=== PATIENT | male | born 1975 | race Caucasian/White ===

== ENCOUNTER 2022-09-15 19:17 | Inpatient (IN) | payer SELFPAY ==
[2022-09-15] MEDS ORDERED: cefTRIAXone 2 GM in Sodium Chloride 0.9% 50 ML IV ONE (19:37)
[2022-09-15] MEDS ORDERED: Sodium Chloride 0.9% 2.5 ML Syringe FLUSH PRN (19:37)
[2022-09-15] MEDS ORDERED: Ketorolac 30 MG/ML SDV IVPUSH ONE (19:37)
[2022-09-15] MEDS ORDERED: Azithromycin 250 MG Tab PO ONE (19:37)
[2022-09-15] MEDS ORDERED: Sodium Chloride 0.9% 10 ML Syringe FLUSH PRN (19:37)
[2022-09-15] MEDS ORDERED: HYDROmorphone 1 MG/ML Syringe IVPUSH ONE ×2 (19:37→20:52)
[2022-09-15] MEDS ORDERED: Prochlorperazine 10 MG/2 ML SDV IVPUSH ONE (19:37)
[2022-09-15] MEDS ORDERED: Sodium Chloride 0.9% 1,000 ML IV ONE (19:37)
[2022-09-15] MEDS ORDERED: metroNIDAZOLE/Normal Saline 500 MG in Premix Bag 1 BAG IV ONE (19:37)
[2022-09-15] MEDS ORDERED: Pantoprazole 80 MG in Sodium Chloride 0.9% 10 ML IVPUSH ONE (19:47)
[2022-09-15 20:21] LABS: PH,VENOUS 7.39 (7.31-7.41)
[2022-09-15 20:27] LABS: BASOPHILS PERCENT AUTO 0.4 % (0.0-1.5); EOSINOPHILS ABSOLUTE AUTO 0.1 K/uL (0.0-0.7); EOSINOPHILS PERCENT AUTO 0.9 % (0.0-7.0); HEMATOCRIT 46.1 % (38.0-50.0); HEMOGLOBIN 15.6 g/dL (13.0-17.0); LYMPHOCYTES ABSOLUTE AUTO 1.5 K/uL (0.6-2.4); LYMPHOCYTES PERCENT AUTO 16.6 % (16.0-40.0); MEAN CORPUSCULAR HEMOGLOBIN 33.2 pg (27.0-32.0); MEAN CORPUSCULAR HGB CONC 33.8 g/dL (31.0-37.0); MEAN CORPUSCULAR VOLUME 98.1 fL (80.0-98.0); MONOCYTES ABSOLUTE AUTO 1.1 K/uL (0.0-0.8); MONOCYTES PERCENT AUTO 12.6 % (0.0-15.0); NEUTROPHILS ABSOLUTE AUTO 6.2 K/uL (1.4-5.7); NEUTROPHILS PERCENT AUTO 69.5 % (48.0-80.0); NRBC ABSOLUTE 0 K/uL; PLATELET COUNT,PLT 348 K/uL (150-400); WHITE BLOOD CELL COUNT,WBC 8.96 K/uL (4.0-11.0)
[2022-09-15 21:20] LABS: INR 1.03 (0.86-1.11)
[2022-09-15 21:31] LABS: LACTIC ACID 0.8 mmol/L (0.4-2.0)
[2022-09-15 21:43] LABS: ALANINE AMINOTRANSFERASE,ALT 81 IU/L (14-63); ALBUMIN 3.1 g/dL (3.4-5.0); ALKALINE PHOSPHATASE 51 U/L (46-116); ASPARTATE AMNIOTRANSFERASE,AST 71 IU/L (15-37); BILIRUBIN TOTAL 0.3 mg/dL (0.2-1.0); BLOOD UREA NITROGEN,BUN 18 mg/dL (7.0-18.0); C-REACTIVE PROTEIN <0.20 mg/dL (0.00-0.90); CARBON DIOXIDE,CO2 19.8 mmol/L (21.0-32.0); CHLORIDE,CL 107 mmol/L (98-107); CREATININE 1.5 mg/dL (0.8-1.3); EST CRCL DRUG DOSING (CG) 59.53 mL/min; GLUCOSE RANDOM 94 mg/dL (74-106); MAGNESIUM 2.1 mg/dL (1.8-2.4); PHOSPHORUS 3.1 mg/dL (2.6-4.7); POTASSIUM,K 4.4 mmol/L (3.5-5.1); PROTEIN TOTAL,TP 6.1 g/dL (6.4-8.2); SODIUM,NA 140 mmol/L (136-148)
[2022-09-15 21:48] LABS: ESTIMATED GFR 58 mL/min (>60)
[2022-09-15] MEDS ORDERED: Iopamidol 755 MG/ML 500 ML Multipack Bottle IVPUSH ONE (21:54)
[2022-09-15 21:59] LABS: LIPASE 2059 U/L (73-393)
[2022-09-15] MEDS ORDERED: HYDROmorphone 1 MG/ML Syringe IVPUSH STA (23:00)
[2022-09-16] MEDS: HYDROmorphone 1 MG/ML Syringe IVPUSH PRN ×16 (00:06→23:40)
[2022-09-16] MEDS ORDERED: LORazepam 2 MG/ML SDV IVPUSH ONE (00:10)
[2022-09-16] MEDS ORDERED: Ondansetron 4 MG/2 ML SDV IVPUSH PRN (00:18)
[2022-09-16] MEDS: Nicotine 14 MG/24 Hr Patch TRDERM SCH ×2 (00:38→09:54)
[2022-09-16] MEDS: Thiamine 200 MG/2 ML MDV IVPUSH SCH ×2 (00:39→09:54)
[2022-09-16] MEDS: Folic Acid 1 MG/0.2 ML UD Syringe SUBCUT SCH ×2 (00:39→09:54)
[2022-09-16] MEDS: oxyCODONE 5 MG Tab PO PRN ×6 (00:39→21:50)
[2022-09-16] MEDS: Sodium Chloride 0.9% 1,000 ML IV SCH ×2 (00:43→01:49)
[2022-09-16] MEDS: Lactated Ringers 1,000 ML IV SCH ×3 (02:57→21:21)
[2022-09-16 05:50] LABS: BASOPHILS PERCENT AUTO 0.5 % (0.0-1.5); EOSINOPHILS ABSOLUTE AUTO 0.2 K/uL (0.0-0.7); EOSINOPHILS PERCENT AUTO 2.5 % (0.0-7.0); HEMATOCRIT 42.9 % (38.0-50.0); HEMOGLOBIN 14.4 g/dL (13.0-17.0); LYMPHOCYTES ABSOLUTE AUTO 2.4 K/uL (0.6-2.4); LYMPHOCYTES PERCENT AUTO 27.7 % (16.0-40.0); MEAN CORPUSCULAR HGB CONC 33.6 g/dL (31.0-37.0); MEAN CORPUSCULAR VOLUME 98.4 fL (80.0-98.0); MONOCYTES ABSOLUTE AUTO 0.9 K/uL (0.0-0.8); MONOCYTES PERCENT AUTO 10.7 % (0.0-15.0); NEUTROPHILS PERCENT AUTO 58.6 % (48.0-80.0); NRBC ABSOLUTE 0 K/uL; PLATELET COUNT,PLT 313 K/uL (150-400); RED BLOOD CELL COUNT 4.36 M/uL (4.50-5.90); WHITE BLOOD CELL COUNT,WBC 8.52 K/uL (4.0-11.0)
[2022-09-16] MEDS ORDERED: LORazepam 2 MG/ML SDV IVPUSH PRN (05:51)
[2022-09-16 06:18] LABS: MAGNESIUM 1.5 mg/dL (1.8-2.4)
[2022-09-16] MEDS ORDERED: Sodium Chloride 0.9% 10 ML Syringe FLUSH PRN (08:20)
[2022-09-16] MEDS ORDERED: Albuterol 0.083% 2.5 MG/3 ML Neb Soln NEB PRN (08:20)
[2022-09-16] MEDS ORDERED: Sodium Chloride 0.9% 2.5 ML Syringe FLUSH PRN (08:20)
[2022-09-16 08:54] LABS: ALBUMIN 2.9 g/dL (3.4-5.0); BILIRUBIN TOTAL 0.7 mg/dL (0.2-1.0); CALCIUM 7.2 mg/dL (8.5-10.1); CARBON DIOXIDE,CO2 19.8 mmol/L (21.0-32.0); CREATININE 1.4 mg/dL (0.8-1.3); EST CRCL DRUG DOSING (CG) 63.79 mL/min; POTASSIUM,K 4.6 mmol/L (3.5-5.1); PROTEIN TOTAL,TP 5.7 g/dL (6.4-8.2)
[2022-09-16] MEDS: Pantoprazole 40 MG in Sodium Chloride 0.9% 10 ML IVPUSH SCH (09:17)
[2022-09-16] MEDS ORDERED: Lactated Ringers 1,000 ML IV ONE (10:30)
[2022-09-16] MEDS ORDERED: SODIUM PHOSPHATE IV ONE (11:30)
[2022-09-16] MEDS ORDERED: SODIUM CHLORIDE 0.9% IV ONE (11:30)
[2022-09-16] MEDS ORDERED: MAGNESIUM SULFATE IV ONE (11:30)
[2022-09-17] MEDS: HYDROmorphone 1 MG/ML Syringe IVPUSH PRN ×12 (00:44→15:00)
[2022-09-17] MEDS: oxyCODONE 5 MG Tab PO PRN ×5 (01:53→20:21)
[2022-09-17] MEDS: Lactated Ringers 1,000 ML IV SCH ×5 (02:18→22:59)
[2022-09-17 05:48] LABS: BASOPHILS PERCENT AUTO 0.7 % (0.0-1.5); EOSINOPHILS ABSOLUTE AUTO 0.2 K/uL (0.0-0.7); EOSINOPHILS PERCENT AUTO 3.5 % (0.0-7.0); HEMATOCRIT 41.5 % (38.0-50.0); HEMOGLOBIN 14.2 g/dL (13.0-17.0); LYMPHOCYTES ABSOLUTE AUTO 1.5 K/uL (0.6-2.4); LYMPHOCYTES PERCENT AUTO 24.4 % (16.0-40.0); MEAN CORPUSCULAR HEMOGLOBIN 33.7 pg (27.0-32.0); MEAN CORPUSCULAR HGB CONC 34.2 g/dL (31.0-37.0); MEAN CORPUSCULAR VOLUME 98.6 fL (80.0-98.0); MONOCYTES ABSOLUTE AUTO 1.1 K/uL (0.0-0.8); MONOCYTES PERCENT AUTO 17.5 % (0.0-15.0); NEUTROPHILS ABSOLUTE AUTO 3.2 K/uL (1.4-5.7); NEUTROPHILS PERCENT AUTO 53.9 % (48.0-80.0); NRBC ABSOLUTE 0 K/uL; PLATELET COUNT,PLT 284 K/uL (150-400); RED BLOOD CELL COUNT 4.21 M/uL (4.50-5.90); WHITE BLOOD CELL COUNT,WBC 5.99 K/uL (4.0-11.0)
[2022-09-17 06:09] LABS: A/G RATIO 1.1 (0.9-1.6); ALBUMIN 3.1 g/dL (3.4-5.0); BILIRUBIN TOTAL 0.9 mg/dL (0.2-1.0); CALCIUM 7.9 mg/dL (8.5-10.1); CARBON DIOXIDE,CO2 22.9 mmol/L (21.0-32.0); CREATININE 1.3 mg/dL (0.8-1.3); EST CRCL DRUG DOSING (CG) 68.69 mL/min; MAGNESIUM 1.8 mg/dL (1.8-2.4); POTASSIUM,K 4.6 mmol/L (3.5-5.1); PROTEIN TOTAL,TP 5.9 g/dL (6.4-8.2)
[2022-09-17] MEDS: Nicotine 14 MG/24 Hr Patch TRDERM SCH (08:20)
[2022-09-17] MEDS: Pantoprazole 40 MG in Sodium Chloride 0.9% 10 ML IVPUSH SCH ×2 (08:21→20:21)
[2022-09-17] MEDS: Folic Acid 1 MG/0.2 ML UD Syringe SUBCUT SCH (08:22)
[2022-09-17] MEDS: Thiamine 200 MG/2 ML MDV IVPUSH SCH (08:23)
[2022-09-17] MEDS: Sucralfate Suspension 1 GM/10 ML Cup PO SCH ×3 (11:44→22:13)
[2022-09-17] MEDS ORDERED: HYDROmorphone 2 MG/ML Syringe IVPUSH PRN (15:45)
[2022-09-18] MEDS: oxyCODONE 5 MG Tab PO PRN ×3 (00:26→08:31)
[2022-09-18] MEDS: Lactated Ringers 1,000 ML IV SCH (04:43)
[2022-09-18 05:50] LABS: BASOPHILS PERCENT AUTO 0.3 % (0.0-1.5); EOSINOPHILS ABSOLUTE AUTO 0.2 K/uL (0.0-0.7); EOSINOPHILS PERCENT AUTO 3.3 % (0.0-7.0); HEMATOCRIT 43.6 % (38.0-50.0); HEMOGLOBIN 14.8 g/dL (13.0-17.0); LYMPHOCYTES ABSOLUTE AUTO 1.4 K/uL (0.6-2.4); LYMPHOCYTES PERCENT AUTO 21.9 % (16.0-40.0); MEAN CORPUSCULAR HEMOGLOBIN 33.2 pg (27.0-32.0); MEAN CORPUSCULAR HGB CONC 33.9 g/dL (31.0-37.0); MEAN CORPUSCULAR VOLUME 97.8 fL (80.0-98.0); MONOCYTES ABSOLUTE AUTO 0.9 K/uL (0.0-0.8); MONOCYTES PERCENT AUTO 14.5 % (0.0-15.0); NEUTROPHILS ABSOLUTE AUTO 3.8 K/uL (1.4-5.7); NRBC ABSOLUTE 0 K/uL; PLATELET COUNT,PLT 281 K/uL (150-400); RED BLOOD CELL COUNT 4.46 M/uL (4.50-5.90); WHITE BLOOD CELL COUNT,WBC 6.35 K/uL (4.0-11.0)
[2022-09-18 06:28] LABS: A/G RATIO 1.1 (0.9-1.6); ALBUMIN 3.1 g/dL (3.4-5.0); BILIRUBIN TOTAL 0.8 mg/dL (0.2-1.0); CARBON DIOXIDE,CO2 22.9 mmol/L (21.0-32.0); CREATININE 1.4 mg/dL (0.8-1.3); EST CRCL DRUG DOSING (CG) 63.79 mL/min; MAGNESIUM 1.5 mg/dL (1.8-2.4); PHOSPHORUS 1.8 mg/dL (2.6-4.7); POTASSIUM,K 4.9 mmol/L (3.5-5.1)
[2022-09-18] MEDS: Sucralfate Suspension 1 GM/10 ML Cup PO SCH (06:46)
[2022-09-18] MEDS ORDERED: Magnesium Sulfate/Water 2 GM in Premix Bag 1 BAG IV ONE (07:49)
[2022-09-18] MEDS ORDERED: Phosphorus #1 250 MG Tab PO SCH (08:00)
[2022-09-18] MEDS: Nicotine 14 MG/24 Hr Patch TRDERM SCH (08:32)
[2022-09-18] MEDS: Folic Acid 1 MG/0.2 ML UD Syringe SUBCUT SCH (08:37)
[2022-09-18] MEDS: Pantoprazole 40 MG in Sodium Chloride 0.9% 10 ML IVPUSH SCH (08:38)
[2022-09-18] MEDS: Thiamine 200 MG/2 ML MDV IVPUSH SCH (08:38)
[2022-09-18] MEDS ORDERED: Magnesium Oxide 400 MG Tab PO ONE (08:38)
== END 2022-09-18 10:00 | disposition home or self-care (01) | DRG 439 ==
LOC: MW.ED 19:17 → MW.MS 23:14
PROVIDERS: ADMIT Internal Medicine; ATTEND Internal Medicine
DX: K85.20 Alcohol induced acute pancreatitis without necrosis or infection (principal); K62.5 Hemorrhage of anus and rectum; N17.9 Acute kidney failure, unspecified; Z96.641 Presence of right artificial hip joint; K52.9 Noninfective gastroenteritis and colitis, unspecified; I10 Essential (primary) hypertension; E83.42 Hypomagnesemia; E83.39 Other disorders of phosphorus metabolism; F11.90 Opioid use, unspecified, uncomplicated; F10.10 Alcohol abuse, uncomplicated; K29.20 Alcoholic gastritis without bleeding; G89.29 Other chronic pain; M54.9 Dorsalgia, unspecified; Z89.9 Acquired absence of limb, unspecified; Z79.899 Other long term (current) drug therapy
CPT/HCPCS: 36415; 71045; 71045-26; 74177; 74177-26; 76705; 76705-26; 80053; 82803; 82947; 83605; 83690; 83735; 84100; 84478; 85025; 85610; 86140; 86850; 86900; 86901; 87040; 96365; 96368; 96375; 96376; 99222; 99232; 99238; 99285; 99285-25; A9270-GY; C9113; J0696; J0780; J1170; J1885; J2060; J3411; J3475; J3490; J7030; J7040; J7120; Q9967